=== PATIENT | female | born 1945 | race Caucasian/White ===

== ENCOUNTER 2019-08-20 07:05 | Observation (INO) | payer MEDICARE ==
[2019-08-20] MEDS ORDERED: NS 0.9% 1000 ML** 1,000 ML IV ONE ×2 (07:25→09:11)
[2019-08-20] MEDS ORDERED: Ondansetron INJ* 2 MG/ML VIAL IV ONE (07:25)
[2019-08-20] MEDS ORDERED: Morphine 4 MG/ML VIAL (1 ml) 4 MG/ML VIAL IV ONE ×2 (07:26→09:12)
--- NOTE | 2019-08-20 07:26 | ED ---
Abdominal Pain/Female - HPI Summary HPI Summary: Pt. is a 73 y.o female who presents to the ER for 3 day history of right flank pain, RLQ pain, and nausea/vomiting. Past hx of HTN. Denies fever, cp, sob, diarrhea, cough. Notes decreased urination. Pt. notes she has not ate or drank in the past 3 days. Denies hx of abd. surgeries. Sxs are moderate in severity. Pain is constant without modifying factors. - History of Current Complaint Chief Complaint: EDBackInjuryPain Stated Complaint: BACK AND SIDE PAIN PER PT Time Seen by Provider: 08/20/19 07:15 Hx Obtained From: Patient Pain Intensity: 6 Allergies/Adverse Reactions: Allergies Allergy/AdvReac Type Severity Reaction Status Date / Time No Known Allergies Allergy Verified 08/20/19 07:12 Home Medications: Home Medications Cholecalciferol TAB* [Vitamin D TAB*] 2,000 units PO DAILY tab 08/01/18 [Rx Confirmed 08/20/19] Metoprolol Tartrate TAB* [Lopressor TAB*] 37.5 mg PO BID tab 08/01/18 [Rx Confirmed 08/20/19] amLODIPine TAB* [Norvasc 5 mg TAB*] 5 mg PO DAILY tab 08/01/18 [Rx Confirmed ] PMH/Surg Hx/FS Hx/Imm Hx Previously Healthy: Yes Endocrine/Hematology History: Denies: Hx Diabetes Cardiovascular History: Denies: Hx Hypertension Respiratory History: Denies: Hx Asthma, Hx Chronic Obstructive Pulmonary Disease (COPD) GI History: Reports: Hx Gastroesophageal Reflux Disease History: Denies: Hx Renal Disease Sensory History: Reports: Hx Contacts or Glasses Denies: Hx Hearing Aid Opthamlomology History: Reports: Hx Contacts or Glasses Psychiatric History: Denies: Hx Anxiety - anxious right now Infectious Disease History: No Infectious Disease History: Denies: Traveled Outside the [place] in Last 30 Days - Family History Known Family History: Positive: Non-Contributory Negative: Hypertension - Social History Occupation: Retired Lives: With Family Alcohol Use: None Substance Use Type: Reports: None Smoking Status (MU): Former Smoker Type: Cigarettes Review of Systems Constitutional: Negative Cardiovascular: Negative Negative: Palpitations, Chest Pain Respiratory: Negative Negative: Shortness Of Breath, Cough Positive: Abdominal Pain, Nausea. Negative: Vomiting, Diarrhea Genitourinary: Other - decreased urination. Positive: flank pain Neurological/Mental Status: Negative All Other Systems Reviewed And Are Negative: Yes Physical Exam Triage Information Reviewed: Yes Vital Signs On Initial Exam: Initial Vitals Temp Pulse Resp BP Pulse Ox 97.5 F 128 17 159/103 93 08/20/19 07:08 08/20/19 07:08 08/20/19 07:08 08/20/19 07:08 08/20/19 07:08 Vital Signs Reviewed: Yes Appearance: Positive: Well-Appearing - Pt. sitting on bed in NAD. Appears uncomfortably but nontoxic. Skin: Positive: Warm, Dry Head/Face: Positive: Normal Head/Face Inspection Eyes: Positive: Normal, EOMI Respiratory/Lung Sounds: Positive: Clear to Auscultation, Breath Sounds Present Cardiovascular: Positive: Normal, RRR Abdomen Description: Positive: Other: - Obese. Mild right CVA tenderness. Abd. soft with tenderness to RLQ and RUQ. Musculoskeletal: Negative: Edema Left, Edema Right Neurological: Positive: Normal, CN Intact II-III Psychiatric: Positive: Affect/Mood Appropriate Procedures - Sedation Patient Received Moderate/Deep Sedation with Procedure: No Diagnostics - Vital Signs Vital Signs Temp Pulse Resp BP Pulse Ox 08/20/19 07:08 97.5 F 128 17 159/103 93 - Laboratory Result Diagrams: 08/20/19 07:33 08/20/19 07:33 Lab Statement: Any lab studies that have been ordered have been reviewed, and results considered in the medical decision making process. Abdominal Pain Fem Course/Dx - Course Course Of Treatment: Pt. with rided pain. Mildly tachycardic. Afebrile. Pt. started on IV fluids and pain medication. ECG done at 0739 shows a sinus tachycardia of 108bpm, left axis deviation, no STEMI. Labs show mild luekocytosis and CRP. U/A negative for infection. CT per radiology: 1. There is an 8 mm calcification in the distal right ureter with moderate ipsilateral. hydronephrosis consistent with obstructive uropathy. 2. At the mid-level left renal cortex there is a focus of coarse calcification of. indeterminate clinical significance. Please correlate to prior interventions in the left kidney. 3. Hepatic steatosis. Case discussed with Dr. Figueroa, urology, who would like pt. admitted to hospitalist and he will plan on placing stent tonight. On re-exam pt. resting comfortably. Agreeable with plan. Nontoxic appearing. Case discussed with Dr. Raymundo who will accept pt. for admission. This report is only to be considered final once signed by the Provider(s) as displayed in the "<Electronically Signed by >" field (s). Absence of a. signature indicates the report is in a draft status and still needs to be finalized. In the event this document was created by someone other than the. signing Provider, the individual initiating the document will be listed in the "Entered by:" or "Dictated by:" ware. 2 of 2 - Diagnoses Differential Diagnosis: Positive: Appendicitis, Gall Bladder Disease, Renal Colic, Urinary Tract Infection Provider Diagnoses: Urolithiasis Discharge ED - Sign-Out/Discharge Documenting (check all that apply): Patient Departure - Discharge Plan Condition: Stable Disposition: ADMITTED TO [facility] - Billing Disposition and Condition Condition: STABLE Disposition: Admitted to [facility] - Attestation Statements Provider Attestation: I was available for consultation for this patient. I did not evaluate the patient or participate in any medical decision making or disposition decisions unless I am specifically named in the chart as having consulted on the patient. If I have consulted on the patient, please see my own ED note on the patient encounter. Gianfranco Cabral MD
--- OUTSIDE RECORDS SUMMARY | 2019-08-20 07:27 | XMS REPORT | Continuity of Care Document ---
:1945 External Reference #:[id number] Author Name Chiki Crisostomo MD (transmitted by agent of provider Karen Bonner) Address [address] [place] [id number] Care Team Providers Name Role Phone Daisy Campos MD - Internal Medicine Care Team Information [facility] Director Problems Active Problems Provider Date Unspecified fracture of shaft of left tibia, Chiki Crisostomo MD Onset: subsequent encounter for closed fracture with routine healing Social History Type Date Description Comments Sex Unknown ETOH Use Denies alcohol use Tobacco Use Start: Unknown End: Patient is a former smoker Unknown Recreational Drug Use Denies Drug Use Smoking Status Reviewed: 07/26/19 Patient is a former smoker Exercise Type/Frequency Physical Therapy Allergies, Adverse Reactions, Alerts Description No Known Drug Allergies Medications Active Medications SIG Qnty Indications Ordering Provider Date Metoprolol Tartrate 2 tabs by mouth 60tabs Daisy Campos MD 11/02/2018 once a day 25mg Tablets Tylenol 2 tablets every 4 Unknown 325mg Capsules hours as needed for pain Amlodipine Besylate Take 1 Tablet By 90tahussain Campos MD 5mg Mouth Every Day Tablets Famotidine 1 tab by mouth Unknown 20mg Tablets twice a day Vitamin D3 Super 1 by mouth every Unknown Strength day 2000Unit Tablets Immunizations Description No Information Available Vital Signs Date Vital Result Comment 07/26/2019 10:03am Height 68 inches 5'8" Weight 220.00 lb Heart Rate 80 /min BP Systolic 152 mmHg BP Diastolic 88 mmHg Respiratory Rate 18 /min Pain Level 0 BMI (Body Mass Index) 33.4 kg/m2 04/24/2019 10:17am Height 68 inches 5'8" Weight 220.00 lb Heart Rate 70 /min BP Systolic 146 mmHg BP Diastolic 82 mmHg Respiratory Rate 12 /min Pain Level 0 BMI (Body Mass Index) 33.4 kg/m2 Results Description No Information Available Procedures Description No Information Available Medical Devices Description No Information Available Encounters Type Date Location Provider Dx Diagnosis Office Visit 04/24/2019 [facility] Chiki Lockwood S82.142D Displ bicondylar 10:15a at Carmen Crisostomo MD fx l tibia, subs for clos fx w routn heal S82.252D Displ commnt fx shaft of l tibia, 7thD Assessments Date Code Description Provider 07/26/2019 S82.142D Displaced bicondylar fracture of left Chiki Crisostomo MD tibia, subsequent enco 04/24/2019 S82.142D Displaced bicondylar fracture of left Chiki Crisostomo MD tibia, subsequent enco 04/24/2019 S82.252D Displaced comminuted fracture of shaft of Chiki Crisostomo MD left tibia, subsequent encounter for closed fracture with routine healing 03/06/2019 Z00.01 Encounter for general adult medical Daisy Campos MD examination with abnormal findings 03/06/2019 I10 Essential (primary) hypertension Daisy Campos MD 03/06/2019 E83.52 Hypercalcemia Daisy Campos MD Plan of Treatment Future Appointment(s):10/30/2019 10:20 am - Daisy Campos MD at [facility] Internal Medicine - [facility]07/26/2019 - Chiki Lockwood Kranthi MDS82.142D Displaced bicondylar fracture of left tibia, subsequent encoFollow up:Follow up: As needed Functional Status Description No Information Available Mental Status Description No Information Available Referrals Description No Information Available
[2019-08-20 07:48] LABS: ABS Basophils 0.1 10^3/ul (0-0.2); ABS Lymphocytes 1.5 10^3/ul (1.0-4.8); ABS Monocytes 0.7 10^3/ul (0-0.8); ABS Neutrophils 10.3 10^3/ul (1.5-7.7); Hematocrit 43 % (35-47); Hemoglobin 14.9 g/dL (12.0-16.0); Lymphocyte % 11.7 %; Mean Corpuscular HGB Conc 35 g/dL (31-36); Mean Corpuscular Hemoglobin 31 pg (27-31); Mean Corpuscular Volume 90 fL (80-97); Mean Platelet Volume 7.8 fL (7.4-10.4); Nucleated Red Blood Cells % 0.1; Platelet Count 333 10^3/uL (150-450); Red Blood Count 4.79 10^6 /uL (3.70-4.87); Red Cell Distribution Width 14 % (10-15); White Blood Count 12.5 10^3/uL (3.5-10.8)
[2019-08-20 08:06] LABS: ALT 17 U/L (7-52); AST 16 U/L (13-39); Albumin 4.1 g/dL (3.2-5.2); Albumin/Globulin Ratio 1.1 (1-3); Alkaline Phosphatase 98 U/L (34-104); Anion Gap 10 mmol/L (2-11); BUN/Creatinine Ratio 16.1 (8-20); Blood Urea Nitrogen 24 mg/dL (6-24); C Reactive Protein 13.07 mg/L (<8.01); CO2 Carbon Dioxide 23 mmol/L (22-32); Calcium 10.3 mg/dL (8.6-10.3); Chloride 103 mmol/L (101-111); EGFR African American 41.5 (>60); EGFR Non-African American 34.3 (>60); Globulin 3.7 g/dL (2-4); Glucose 145 mg/dL (70-100); Potassium 3.6 mmol/L (3.5-5.0); Sodium 136 mmol/L (135-145); Total Protein 7.8 g/dL (6.4-8.9)
[2019-08-20 08:07] LABS: Troponin I 0.02 ng/mL (<0.03)
[2019-08-20] MEDS ORDERED: Ketorolac INJ* 30 MG/ML 1 ML VIAL IV PUSH ONE (09:12)
[2019-08-20 11:05] LABS: Urine Appearance Clear; Urine Bilirubin Negative (Negative); Urine Blood 1+ (Negative); Urine Color Yellow; Urine Glucose Negative (Negative); Urine Ketones Negative (Negative); Urine Nitrite Negative (Negative); Urine Protein Negative (Negative); Urine Specific Gravity 1.015 (1.010-1.030); Urine Urobilinogen Negative (Negative)
[2019-08-20 11:12] LABS: Urine Bacteria Absent (Absent); Urine Red Blood Cell Trace(0-2/hpf) (Absent); Urine Squamous Epithelial Cell Present (Absent); Urine White Blood Cell Trace(0-5/hpf) (Absent)
[2019-08-20] MEDS ORDERED: Ondansetron INJ* 2 MG/ML VIAL IV PRN (12:04)
[2019-08-20] MEDS ORDERED: Acetaminophen TAB* 325 MG PO PRN ×2 (12:04→17:53)
[2019-08-20] MEDS ORDERED: Morphine INJ* 2 MG/ML 1 ML SYRINGE (TWO MG - NEW SYRINGE VERSION) IV PRN (12:08)
--- NOTE | 2019-08-20 13:26 | HP ---
CC: Dr. Daisy Campos; Dr. Nadir Figueroa * ADMISSION HISTORY AND PHYSICAL: DATE OF ADMISSION: 08/20/19 PRIMARY CARE PROVIDER: Dr. Daisy Campos. MY ATTENDING WHILE IN THE HOSPITAL: Dr. Smiley Raymundo.* (DICTATED BY HALINA KERN) CONSULTING UROLOGIST: Dr. Nadir Figueroa. CHIEF COMPLAINT: Flank pain x2 days. HISTORY OF PRESENT ILLNESS: Ms. Hernandez is a 73-year-old female with past medical history significant only for hypertension, who presents to the emergency department after 08/18/19, the patient developed sudden onset of right flank pain radiating from her back to her front, not radiating anywhere else, no other associated symptoms. The pain was rated as severe to the point that she had only other experience of pain this severe when she broke her leg last year. The patient denied any fevers or chills. The patient has not had any urinary symptoms including hematuria, dysuria, or urinary frequency. The patient attempted to stay at home but had significant nausea, vomiting, anorexia and did not eat or drink since the pain began and as such began to feel very dehydrated and had low urine output. The patient came into the emergency department because of this. The patient denied any chest pain, shortness of breath. The patient did have some chills, but no fevers. The patient did not have significant vomiting, just anorexia and nausea limiting her food intake. The patient did not have any issues with dizziness, but did feel somewhat woozy after being given medications in the emergency department. The patient was able to urinate after fluids in the emergency department. While in the emergency department, had a CT of abdomen and pelvis which showed an 8 mm calcification in the distal right ureter with hydronephrosis consistent with obstructive uropathy, and due to this, we were asked to evaluate the patient for admission to the hospital primarily for urinary stenting. PAST MEDICAL HISTORY: Hypertension. PAST SURGICAL HISTORY: Left tibial ORIF in 2019. MEDICATIONS: 1. Amlodipine 5 mg p.o. daily. 2. Metoprolol tartrate 37.5 mg p.o. b.i.d. 3. Vitamin D 2000 units p.o. daily. ALLERGIES: No known drug allergies. FAMILY HISTORY: The patient's mother at 82 of stroke. The patient's father at 46 from complications of fever. The patient has 2 sisters who are healthy and 5 children who are healthy. SOCIAL HISTORY: The patient smoked half pack a day for approximately 30 years, quit in 2009. The patient drinks alcohol rarely around the holidays generally. Denies illicit drug use. 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 The patient is and has 5 children. The patient's surrogate decision maker will be her son, Chris Hernandez. REVIEW OF SYSTEMS: A 10-point review of systems was reviewed and is negative except as above in the HPI. PHYSICAL EXAMINATION GENERAL: The patient is a 73-year-old female who appears stated age, sitting comfortably in bed, in no acute distress. VITAL SIGNS: At the time of evaluation, temperature 97.5, pulse rate 95, oxygen saturation 95% on room air, blood pressure 149/81. HEENT: Head: Normocephalic, atraumatic. Sclerae anicteric. No conjunctival injection. Nasal mucosa dry. Oral mucosa dry. No pharyngeal erythema, discharge, or exudate. NECK: Supple, nontender. No lymphadenopathy. No carotid bruits auscultated. No JVD. RESPIRATORY: Clear to auscultation bilaterally. No wheezes, rales, or rhonchi. Good air exchange bilaterally. CARDIAC: Regular rate and rhythm. No clicks, murmurs, gallops, or rubs. Pulses are 2+ in the bilateral dorsalis pedis, posterior tibial, and radial areas. ABDOMEN: Soft, nontender. GENITOURINARY: Right-sided CVA tenderness. No other suprapubic or CVA tenderness. NEURO: Cranial nerves II through XII intact. No focal deficits. Alert and oriented x3. PSYCHIATRIC: Pleasant and cooperative. SKIN: Clean, dry, and intact. No rash. DIAGNOSTIC STUDIES/LAB DATA: Abdomen and pelvis CT read as there is an 8 mm calcification in the distal right ureter with moderate ipsilateral hydronephrosis consistent with obstructive uropathy. Up to the mid level left renal cortex, there is a focus of coarse calcification of indeterminate clinical significance, please correlate with prior interventions in the left kidney. Hepatic steatosis. EKG is nonischemic. No ST segment elevation or depression. No hypertrophy or enlargement. Rate 108, QTc of 477. Left axis deviation. Laboratory data: White blood cell count 12.5, hemoglobin 14.9, platelet count 333. Sodium 136, potassium 3.6, chloride 103, carbon dioxide 23, anion gap 10, BUN 24, creatinine 1.49, glucose 145, lactic acid 1.7, calcium 10.3. Bilirubin 0.5, AST 16, ALT 17. Troponin-I 0.02. CRP 13.07. Protein 7.8, albumin 4.1, globulin 3.7. Lipase less than 10. Urine: Yellow, clear, 1+ blood, squamous epithelial cells present, otherwise unremarkable. ASSESSMENT AND PLAN: Impression: Ms. Hernandez is a 73-year-old female with past medical history significant only for hypertension, who presents to the emergency department with sudden onset of flank pain, found to have an obstructing 8 mm ureteral stone on CT, who will be admitted for pain control and stenting of her hydronephrosis with Dr. Nadir Figueroa. 1. Right-sided nephrolithiasis, ipsilateral hydronephrosis, acute kidney injury. The patient has symptoms consistent with ureteral stone as well as evidence of it on CT. The patient will have pain control with morphine. The patient has been given fluids and these will be continued at this time at a lower rate. The patient denies any fevers or chills and has a urinalysis not suspicious for urinary tract infection. The patient will not be started on antibiotics at this time despite tachycardia and leukocytosis likely related to pain and dehydration. Unless there are intraoperative findings consistent with infection, antibiotics may be started under the advisement of Urology. The patient's creatinine is elevated. This may be related to the patient's hydronephrosis. This may also be related to dehydration for 2 days. The patient was given fluids as above. This will be rechecked in the morning. 2. Hypertension. The patient is currently slightly hypertensive, likely somewhat related to pain. We will continue the patient's metoprolol tartrate to avoid rebound. Hold the patient's amlodipine at this time. 3. DVT prophylaxis: SCDs. The patient is a moderate risk. 4. FEN: The patient will have BMP at this time and have a regular unrestricted diet after her surgery. 5. Disposition: The patient is admitted for observation to the hospital. The patient was scheduled for surgery at 6 p.m. Given this, likely the patient will be observed overnight and go home in the morning. TIME SPENT: Approximately 45 minutes was spent on the admission of this patient , 30 of which was spent [id number] with the patient obtaining history and physical and discussing treatment plan. This plan was discussed with my attending Dr. Smiley Raymundo, and she is in agreement. HALINA KERN [id number]/[facility] #: [id number] ILSA
[2019-08-20] MEDS: NS 0.9% 1000 ML** 1,000 ML IV SCH ×2 (13:47→20:07)
[2019-08-20] MEDS ORDERED: Famotidine IV* 10 MG/ML 2 ML (20 mg) IV ONE (14:19)
[2019-08-20] MEDS ORDERED: Dexamethasone TAB* 4 MG PO ONE (14:19)
[2019-08-20] MEDS ORDERED: Ondansetron ODT TAB* 4 MG PO ONE (14:19)
[2019-08-20] MEDS ORDERED: Buffered Lidocaine 1% SYRIN* 1 ML/SYRINGE INTRADERM ONE (14:19)
[2019-08-20] MEDS ORDERED: Lactated Ringers 1000 ML Bag* 1,000 ML IV SCH (15:00)
[2019-08-20] MEDS ORDERED: Iohexol 180 (CONTRAST) 10 ML SDV IV ONE (15:44)
[2019-08-20] MEDS ORDERED: KETAMINE HCL* 50 MG/ML 10 ML VIAL ONE (16:44)
[2019-08-20] MEDS ORDERED: Midazolam* 1 MG/ML 2 ML VIAL (2 MG) ONE ×2 (16:44→16:58)
[2019-08-20] MEDS ORDERED: fentaNYL* 50 MCG/ML 2 ML VIAL (100 MCG VIAL) ONE ×2 (16:44→17:30)
[2019-08-20] MEDS ORDERED: Dexamethasone TAB* 4 MG ONE (16:54)
[2019-08-20] MEDS ORDERED: Ondansetron ODT TAB* 4 MG ONE (16:54)
[2019-08-20] MEDS ORDERED: Famotidine IV* 10 MG/ML 2 ML (20 mg) ONE (16:54)
[2019-08-20] MEDS ORDERED: cefTRIAXone(*) 1 GM ADVAN/BAG ONE (17:08)
[2019-08-20] MEDS ORDERED: Propofol* 10 MG/ML 20 ML BTL ONE (17:30)
[2019-08-20] MEDS ORDERED: Lidocaine 2% PF * 5 ML VIAL ONE (17:30)
[2019-08-20] MEDS ORDERED: PROCHLORPERAZINE INJ 5 MG/ML 2 ML VIAL IV PRN (17:53)
[2019-08-20] MEDS ORDERED: Naloxone* 0.4 MG/ML 1 ML VIAL IV PRN (17:53)
[2019-08-20] MEDS ORDERED: oxyCODONE TAB* 5 MG TAB PO PRN (17:53)
[2019-08-20] MEDS ORDERED: HYDROmorphone INJ1* 1 MG/ML SYRINGE IV PRN (17:53)
[2019-08-20] MEDS ORDERED: diPHENhydraMINE IV* 50 MG/ML 1 ml VIAL (BENADRYL) IV PRN (17:53)
[2019-08-20] MEDS ORDERED: NS 0.9% 1000 ML** 1,000 ML IV SCH (20:15)
[2019-08-20] MEDS: Metoprolol Tartrate TAB* 25 MG PO SCH (20:18)
--- NOTE | 2019-08-21 02:57 | OP ---
CC: Dr. Campos * DATE OF OPERATION: 08/20/19 - ROOM #334 DATE OF : 45 SURGEON: Nadir Figueroa MD ANESTHESIOLOGIST: Dr. Christina ANESTHESIA: General. PRE-OP DIAGNOSES: 1. Distal right ureteral calculus (8 mm). 2. Right renal calculus (7 mm). 3. Large right renal cyst. POST-OP DIAGNOSES: 1. Distal right ureteral calculus (8 mm). 2. Right renal calculus (7 mm). 3. Large right renal cyst. OPERATIVE PROCEDURES: 1. Cystoscopy. 2. Right ureteroscopy and laser lithotripsy of right ureteral calculus. 3. Right pyeloscopy. 3. Right retrograde pyelography and insertion of right ureteral stent (7-Tamazight ). INDICATIONS FOR PROCEDURE: Mrs. Hernandez is a 73-year-old white female who presented to the emergency room earlier today with symptoms of right renal colic. Noncontrast CT of the abdomen and pelvis showed a complex left renal cyst with peripheral calcifications, a large right renal cyst, a 7 mm calculus in the mid pole infundibulum of the right kidney, moderate right hydroureteronephrosis, and an 8 mm calculus in the distal right ureter. Because of the obstructing distal ureteral calculus and the episode of pain, the patient is taken to the operating room for the above procedure. PATHOLOGY AT CYSTOSCOPY: The bladder mucosa looked normal. There were no changes of cystitis and no suspicious bladder lesion seen. The patient had a cystocele. The ureteral orifices looked normal. No calculi were noted in the bladder. Upon right ureteroscopy, there was an 8 mm calculus that was impacted in the distal right ureter about 2 to 3 cm above the level of the orifice. The calculus had the gross appearance of calcium oxalate stone. Upon right retrograde pyelography, there was distortion of the renal pelvis and of the collecting system secondary to the presence of the large renal cyst. DESCRIPTION OF PROCEDURE: After successful general anesthesia, the patient was placed in the lithotomy position and prepped and draped for cystoscopy. Cystoscopy was performed, the bladder was inspected, and the above findings were noted. A flexible-tip hybrid guidewire was then introduced into the right orifice and positioned in the area of the collecting system. The cystoscope was removed keeping the guidewire in place. A 6.5 semi-rigid ureteroscope was then introduced inside the bladder. A basket was then introduced into the port of the ureteroscope and passed inside the right ureter alongside the guidewire. That allowed the atraumatic introduction of the ureteroscope inside the ureter. The calculus was identified. It was engaged in the basket to stabilize it and to prevent its proximal migration. A 550 micron laser fiber was then introduced through the other port of the ureteroscope. With the stone stabilized in the basket, the stone was broken into fragments using the laser energy. Care was taken not to damage the paula of the ureter. During the lasering, the stone got disengaged from the basket and the basket was removed intact. The stone migrated into the proximal ureter and then into the collecting system. The ureteroscope was introduced without difficulty all the way into the renal pelvis. The calculus, however, could not be well visualized and there was distortion of the collecting system from the presence of the large renal cyst. The ureteroscope was then removed keeping the guidewire in place. The cystoscope was introduced over the guidewire. Retrograde pyelography was then performed demonstrating the distorted collecting system secondary to the cyst, but there was no extravasation. A 7-Tamazight stent was then placed with the proximal end coiling in the collecting system and the distal end coiling inside the bladder. There was good drainage of contrast from the kidney and no extravasation. The patient tolerated the procedure well and left the operating room in good condition. The plan is to obtain a KUB tomorrow to evaluate the right renal calculi. A renal ultrasound will also be obtained to evaluate the complex left renal cyst. The patient will require a second procedure for definitive treatment of the stones. [id number]/[facility] #: [id number] ILSA
[2019-08-21] MEDS: Metoprolol Tartrate TAB* 25 MG PO SCH (08:58)
[2019-08-21 09:33] LABS: Activated Partial Thrombo Time 29.8 seconds (26.0-38.0); INR 1.1 (0.82-1.09)
[2019-08-21 11:28] LABS: BUN/Creatinine Ratio 18.9 (8-20); Calcium 9.9 mg/dL (8.6-10.3); EGFR African American 52.3 (>60); EGFR Non-African American 43.2 (>60); Potassium 3.6 mmol/L (3.5-5.0)
[2019-08-21 11:31] VITALS: BP 138/63
--- NOTE | 2019-08-23 20:45 | DS ---
DISCHARGE SUMMARY: DATE OF ADMISSION: 08/20/19 DATE OF DISCHARGE: 08/21/19 PROVIDER: Andrei Avila NP PRIMARY CARE PROVIDER: Dr. Campos. ATTENDING PHYSICIAN WHILE IN THE HOSPITAL: Dr. Smiley Raymundo * (dictated by Andrei Avila NP) PRIMARY DIAGNOSES: 1. Hydronephrosis. 2. Obstructing nephrolithiasis. SECONDARY DIAGNOSIS: Hypertension. STUDIES COMPLETED WHILE IN THE HOSPITAL: She had CT of the abdomen and pelvis, radiologist's impression: There is an 8 mm calcification in the distal right ureter with moderate the lateral hydronephrosis consistent with obstructive uropathy. At the mid level of the left renal cortex, there is a focus of coarse calcification of indeterminate clinical significance and hepatic steatosis. She had a retrograde pyelogram or a ureteral stent was placed. She had an electrocardiogram which showed sinus tachycardia at a rate of 108. She had a renal ultrasound on 08/21/19 post stent placement, which showed status post placement of right ureteral stent, interval resolution of hydronephrosis, nonobstructing right renal calculus, multiple bilateral slightly complex simple renal cyst, focal cortical thinning associated with calcification in the mid point of the left kidney recommend correlation with prior intervention. She had abdominal x-ray, which showed right renal stent in place calcification in the mid to upper pole of the right kidney. DISCHARGE MEDICATIONS: No new home medications. Continued home medications: 1. Amlodipine 5 mg p.o. daily. 2. Metoprolol 37.5 p.o. b.i.d. 3. Calcium 2000 units p.o. daily. 4. Acetaminophen 650 mg p.o. q.6 hours as needed. HISTORY OF PRESENT ILLNESS AND HOSPITAL COURSE: Ms. Hernandez is a 73-year-old female with past medical history significant only for hypertension who presented to the emergency room on 08/18/19 with sudden onset of right -sided flank pain, radiated to her back and no other associated symptoms. The patient was seen and evaluated in the emergency room. She has a CT of the abdomen and pelvis that showed obstructing right renal calculi. She was seen by Urology and taken to the OR for stent placement and was observed overnight after her stent placement. The patient has been doing well. She denies any abdominal pain, nausea, vomiting, or diarrhea. She denies any chest pain or shortness of breath. She denies any fever or chills overnight. She does report she is urinating well with some pink tinged urine without difficulty or pain. At this time, she is stable for discharge home. REVIEW OF SYSTEMS: The patient denies any chest pain, shortness of breath, fever, chills. Denies any nausea, vomiting, diarrhea, or abdominal pain. She denies any urinary frequency, urgency, or pain with urination. She does report pink tinged urine. 14-point review of systems was completed. All others were negative. PHYSICAL EXAMINATION: General: At this time, Ms. Hernandez is alert and oriented, resting in her hospital bed. She is in no acute distress. Vital Signs: Temperature 98.9, heart rate 71, respirations 16, O2 saturation 95%, blood pressure 138/63. HEENT: Head is atraumatic, normocephalic. Eyes: EOMs are intact. Sclerae anicteric and not pale. Oral mucosa is moist. Neck is supple. Lungs are clear to auscultation bilaterally. No wheezes, rales, or rhonchi. Cardiac: S1, S2. Regular rate and rhythm. No murmurs, rubs, or gallops. Abdomen is soft and nontender. Bowel sounds are present x4. Extremities: She is able to move all 4 extremities. There is no clubbing or cyanosis. Neurologic: She is alert and oriented x3. Her speech is clear. Skin is intact. At this time, Ms. Hernandez is stable for discharge home. DISCHARGE PLAN: 1. Hydronephrosis/obstructing nephrolithiasis. The patient is status post stent placement. She should follow up with Dr. Figueroa for further management of her hydronephrosis and ureteral stents. The patient did have UA and culture that showed no signs of infection. At this time, she is not requiring antibiotics. The patient should return to the emergency room for inability to urinate, significant back pain or lower abdominal pain, fever, chills, or any other concerning symptoms. 2. Hypertension. She should continue on amlodipine as previously prescribed. 3. The patient should follow up with Dr. Figueroa. She should call the office for an appointment tomorrow for a followup. 4. She should follow up with her primary care provider in 1 to 2 weeks. CONDITION ON DISCHARGE: Stable. DISPOSITION ON DISCHARGE: Home. TIME SPENT: Time spent on this discharge was 45 minutes. Greater than half that time was spent at the bedside reviewing, events leading thus far to her hospitalization, performing physical exam and reviewing my plan of care. I have discussed this with my attending, Dr. Smiley Raymundo; she is in agreement with my plan. ANDREI AVILA, TECHNOLOGY DIRECTOR [id number]/[facility] #: [id number] [facility]
== END 2019-08-21 12:35 | disposition home or self-care (01) ==
LOC: ED 07:05 → SSU 12:04
PROVIDERS: ADMIT Hospitalist; ATTEND Internal Medicine
DX: N20.0 Calculus of kidney (principal); R10.84 Generalized abdominal pain; I10 Essential (primary) hypertension; K21.9 Gastro-esophageal reflux disease without esophagitis; E66.8 Other obesity; Z87.891 Personal history of nicotine dependence; Z79.899 Other long term (current) drug therapy
CPT/HCPCS: 36415; 74018; 74176; 74420; 76775; 80048; 80053; 81003; 81015; 83605; 83690; 84484; 85025; 85610; 85730; 86140; 87086; 93005; 96361; 96374; 96375; 99284; A9270-GY; C1876; G0378; J0696; J1885; J2250; J2270; J2405; J2704; J3010; J8540

== ENCOUNTER 2019-08-27 10:40 | Day surgery (SDC) | payer MEDICARE ==
--- NOTE | 2019-08-23 23:05 | HP ---
CC: Dr. Campos * INTERVAL HISTORY AND PHYSICAL PLEASE REFER TO THE HISTORY & PHYSICAL OF HER RECENT ADMISSION DATED 08/20/2019. DATE OF PLANNED ADMISSION AND SURGERY: 08/27/19 HISTORY OF PRESENT ILLNESS: Ms. Hernandez is a 73-year-old white female who is admitted with right renal calculi, status post placement of right ureteral stent , for shock wave lithotripsy of right renal calculi and possible cystoscopy and removal of right ureteral stent. Ms. Hernandez presented to the emergency room on 08/20/19 with a 2 days' history of right flank pain. She did not have any fever or chills. Noncontrast CT of the abdomen and pelvis showed an obstructing 8 mm calculus in the distal right ureter, a non obstructing 7 mm calculus in the right kidney, and bilateral renal cysts. The patient was taken to the operating room on that same day and underwent a cystoscopy, right ureteroscopy, laser lithotripsy, and right ureteral stent insertion. A fragment of the distal ureteral calculus migrated into the collecting system. The patient did well postoperatively. She had a KUB which showed the two calculi each measuring about 6 to 7 mm in size, one located in the upper pole and the other one located in the lower pole calyces of the kidney. The patient also had renal ultrasound, which showed a rather large right renal cyst and a Bosniak II left renal cyst. The patient did well and was discharged home. She is now admitted for shock wave lithotripsy of the right renal calculi and possible right stent removal. PAST MEDICAL HISTORY AND SYSTEM REVIEW: She is hypertensive, maintained on amlodipine 5 mg daily and metoprolol 37.5 mg twice a day. She is on vitamin D supplement. She is on no other chronic medications. She denies any allergies to medications. She had an open reduction of a fracture of her left tibia last year. She has not had any pelvic surgeries. FAMILY HISTORY: Negative for renal diseases or calculi. Her mother from stroke. SOCIAL HISTORY: The patient was a smoker of half a pack per day for 30 years and she stopped 10 years ago. She has minimal intake of alcohol. She denies drug use. Her mental history is negative. PHYSICAL EXAMINATION GENERAL: Pleasant, overweight white female who looks her age. VITAL SIGNS: Blood pressure 140/90. LUNGS: Clear. HEART: Regular and rhythmic. No murmurs. ABDOMEN: Soft. No tenderness and no CVA tenderness. IMPRESSION: 1. Right renal calculi, status post placement of right ureteral stent. 2. Bilateral renal cysts. 3. Hypertension, on treatment. PLAN: I had a long discussion with the patient regarding the options of management of her renal calculi. The patient is a good candidate for shock wave lithotripsy of the right renal calculi; however, the only concern is the presence of the right renal cyst and there are some report in the literature about bleeding in the renal cyst following shock wave lithotripsy, although other reports say it is safe to perform. The other alternative of treating the calculi is to perform ureteroscopy and pyeloscopy and laser lithotripsy. There is significant distortion of the calyces and the collecting system from the presence of the cyst, which could make the ureteroscopy and visualizing the calculi difficult to perform. After considering those facts, the plan is to proceed with shockwave lithotripsy. I discussed it with the patient and she is agreeable. Some of the potential complications including renal hematoma, bleeding in the renal cyst, and postoperative renal colic were discussed. All her questions were answered. [id number]/[facility] #: [id number] [facility]
[~2019-08-27 10:40] MED LIST: Buffered Lidocaine 1% SYRIN* 1 ML/SYRINGE INTRADERM ONE; Dexamethasone IV* 4 MG/ML 1 ML (4 MG) IV SLOW PU ONE; Famotidine IV* 10 MG/ML 2 ML (20 mg) IV ONE; Lactated Ringers 1000 ML Bag* 1,000 ML IV SCH
[2019-08-27] MEDS ORDERED: cefTRIAXone(*) 2 GM ADDV.VIAL IVPB ONE (11:21)
[2019-08-27] MEDS ORDERED: Famotidine IV* 10 MG/ML 2 ML (20 mg) ONE (11:21)
[2019-08-27] MEDS ORDERED: Dexamethasone IV* 4 MG/ML 1 ML (4 MG) ONE (11:21)
[2019-08-27] MEDS ORDERED: Glycopyrrolate IV* 0.2 MG/ML 1 ML VIAL ONE (11:47)
[2019-08-27] MEDS ORDERED: fentaNYL* 50 MCG/ML 2 ML VIAL (100 MCG VIAL) ONE (11:47)
[2019-08-27] MEDS ORDERED: Propofol* 10 MG/ML 20 ML BTL ONE (11:47)
[2019-08-27] MEDS ORDERED: Ondansetron INJ* 2 MG/ML VIAL ONE (11:47)
[2019-08-27] MEDS ORDERED: Rocuronium* 10 MG/ML VIAL ONE (13:15)
[2019-08-27] MEDS ORDERED: Succinylcholine* 20 MG/ML 10 ML VIAL ONE (13:32)
[2019-08-27] MEDS ORDERED: Sugammadex * 200 MG/2 ML VIAL IV PUSH ONE (13:32)
[2019-08-27] MEDS ORDERED: Naloxone* 0.4 MG/ML 1 ML VIAL IV PRN (14:15)
[2019-08-27 15:17] VITALS: BP 159/89
--- NOTE | 2019-08-28 02:38 | OP ---
DATE OF OPERATION: 08/27/19 - [facility] DATE OF : 45 SURGEON: Nadir Figueroa MD. ANESTHESIOLOGIST: Dr. Vanegas. ANESTHESIA: General. PRE-OP DIAGNOSES: 1. Right renal calculi. 2. Status post placement, right ureteral stent. POST-OP DIAGNOSES: 1. Right renal calculi. 2. Status post placement, right ureteral stent. OPERATIVE PROCEDURE: Shock wave lithotripsy of right renal calculus (lower pole , 7 mm). INDICATIONS FOR PROCEDURE: Ms. Hernandez is a 73-year-old white female who presented last week with an obstructing 8 mm calculus of the distal right ureter. She underwent a cystoscopy, right ureteroscopy, laser lithotripsy. After partial fragmentation of the stone, it migrated up into the kidney and could not be reached with the ureteroscope. She was also noted to have a large right renal cyst distorting her calyces. She did very well. Preoperative KUB showed 2 calcifications in the right kidney, each measuring about 7 mm, one located in an upper pole calyx and the other one in the lower pole calyx. The patient is being brought in today for shock wave lithotripsy. PATHOLOGY: At preoperative KUB and again on fluoroscopy, there were 2 calcifications about 7 mm each in the area of a lower pole calyx and an upper pole calyx. No other abnormal calcifications were noted. The right ureteral stent was in good position. DESCRIPTION OF PROCEDURE: After successful general anesthesia, the patient was placed in the supine position on the shock wave lithotripsy table. The calculus in the lower pole calyx which was adjacent to the stent was visualized in both the PA and oblique x-ray views and the position of the generator and of the patient were adjusted to have that stone in the focus of the shock waves. A total of 2,000 shocks were then delivered at a rate of 60 shocks per minute. A 2-minute break was taken after the initial 300 shocks to decrease the risk of renal injury. The energy was kept at a maximum of 5. The proper positioning and fragmentation of the stone were monitored periodically. Because of the close proximity of the renal cyst to the calculus, the energy of the shock waves was kept relatively low and the treatment was stopped at 2,000 shocks. At the completion of the treatment, there was partial fragmentation of the stone. The ypper pole calyx was not treated. The patient tolerated the procedure well and left the operating room in good condition. The plan is to obtain a KUB postoperatively. A decision will be made regarding the definitive treatment of the residual stones. [id number]/[facility] #: [id number] [facility]TD[facility]
== END 2019-08-27 15:29 | disposition home or self-care (01) ==
LOC: OR 10:40
PROVIDERS: ATTEND Urology
DX: N20.0 Calculus of kidney (principal); N28.1 Cyst of kidney, acquired; Z87.891 Personal history of nicotine dependence; I10 Essential (primary) hypertension; E66.9 Obesity, unspecified
CPT/HCPCS: 74018; J0330; J0696; J1100; J2405; J2704; J3010